=== PATIENT | female | born 1955 | race Two or more races ===

== ENCOUNTER 2016-11-07 21:24 | Emergency (ER) | payer SELFPAY ==
[~2016-11-07] VITALS: Ht 157.5 cm; Wt 85.7 kg
[2016-11-07 21:35] VITALS: BP 177/82
--- NOTE | 2016-11-07 21:50 | PHYS DOC ---
Past Medical History Past Medical History: Diabetes-Type II, High Cholesterol, Hypertension Past Surgical History: Cholecystectomy, Additional Past Surgical Histo: BLADDER LIFT Additional Information: 1-2 CIGARETTES A DAY Alcohol Use: None Drug Use: None Adult General Chief Complaint Chief Complaint: FOOT INJURY PAIN [facility] HPI Patient is a 61 year old female presents to the emergency department with complaints of right knee pain. Patient is [place]-speaking, and is offered a student accounts manager, but the family declined stating they will translate for her. The patient was getting out of the vehicle, planted her right lower extremity on the ground to get out and felt a pop in the posterior knee. She's had pain in the knee since incident with pain that radiates to the right hip. Patient had no loss of bowel or bladder control. No abdominal pain. No loss of function of lower extremity. The incident occurred approximately 7 hours prior to arrival in the emergency department. Review of Systems Review of Systems Constitutional: Denies fever or chills [] Eyes: Denies change in visual acuity, redness, or eye pain [] HENT: Denies nasal congestion or sore throat [] Respiratory: Denies cough or shortness of breath [] Cardiovascular: No additional information not addressed in HPI [] GI: Denies abdominal pain, nausea, vomiting, bloody stools or diarrhea [] : Denies dysuria or hematuria [] Musculoskeletal: Right knee pain Integument: Denies rash or skin lesions [] Neurologic: Denies headache, focal weakness or sensory changes [] Endocrine: Denies polyuria or polydipsia [] Current Medications Current Medications Current Medications Medications (Trade) Dose Ordered Sig/[facility] Start Time Stop Time Status Last Admin Dose Admin Fentanyl Citrate (Fentanyl 2ml Vial) 50 mcg 1X ONCE 11/07/16 22:00 11/07/16 22:01 DC 11/07/16 22:00 50 MCG Allergies Allergies Allergies Coded Allergies Type Severity Reaction Last Updated Verified No Known Drug Allergies 11/07/16 No Physical Exam Physical Exam Constitutional: Well developed, well nourished, no acute distress, non-toxic appearance. [] HENT: Normocephalic, atraumatic, bilateral external ears normal, oropharynx moist, no oral exudates, nose normal. [] Eyes: PERRLA, EOMI, conjunctiva normal, no discharge. [] Neck: Normal range of motion, no tenderness, supple, no stridor. [] Cardiovascular:Heart rate regular rhythm, no murmur [] Lungs & Thorax: Bilateral breath sounds clear to auscultation [] Abdomen: Bowel sounds normal, soft, no tenderness, no masses, no pulsatile masses. [] Skin: Warm, dry, no erythema, no rash. [] Back: No tenderness, no CVA tenderness. [] Extremities: Exam of the right leg: Right hip exam unremarkable. She has mild tenderness over the right lateral thigh without bony tenderness. The right knee exam reveals no swelling, no ecchymosis, no erythema. The patient will allow for range of motion but has increased pain diffusely through the knee with range of motion. He has no difficulty with flexion or extension at the hip the knee or the ankle. She has diffuse tenderness to palpate. Exam of the right lower extremity, ankle, foot unremarkable. No saddle anesthesia. Neurovascular intact distally. Muscle strength is 5 over 5. DTRs 2 over 4. Neurologic: Alert and oriented X 3, normal motor function, normal sensory function, no focal deficits noted. [] Psychologic: Affect normal, judgement normal, mood normal. [] Current Patient Data Vital Signs Vital Signs Date Time Temp Pulse Resp B/P (MAP) Pulse Ox O2 Delivery O2 Flow Rate FiO2 11/07/16 22:00 20 95 Room Air 11/07/16 21:35 98.3 85 98.3 EKG EKG [] Radiology/Procedures Radiology/Procedures Right knee x-ray reviewed by Dr. Micheal Coburn, emergency room physician, no acute changes [] Course & Med Decision Making Course & Med Decision Making Pertinent Labs and Imaging studies reviewed. (See chart for details) [] Dragon Disclaimer Dragon Disclaimer This electronic medical record was generated, in whole or in part, using a voice recognition dictation system. Departure Departure Impression: Primary Impression: Strain of knee and leg, left Disposition: 01 HOME, SELF-CARE Condition: STABLE Referrals: UNKNOWN PCP NAME (PCP) Patient Instructions: Knee Sprain Scripts Acetaminophen With Codeine (TYLENOL WITH CODEINE #3 TABLET) 1 Each Tablet 1 TAB PO PRN Q6HRS Y for PAIN, #12 TAB Prov: MIHAI ELLIS BIRDCAGE ASSEMBLER 11/07/16 Problem Qualifiers Primary Impression: Strain of knee and leg, left Encounter type: initial encounter Qualified Codes: S86.912A - Strain of unspecified muscle(s) and tendon(s) at lower leg level, left leg, initial encounter MIHAI ELLIS APRN Nov 07, 2016 21:50
[2016-11-07] MEDS ORDERED: fentaNYL PF VIAL 100 MCG/2 ML VIAL IM ONE (22:00)
[2016-11-07] MEDS ORDERED: ACET-704 PO (22:45)
--- NOTE | 2016-11-08 08:49 | RAD ---
Right knee, 3 views, 11/07/2016: History: Trauma, pain No fracture or dislocation is identified. No significant arthritic change is seen. IMPRESSION: No acute bony abnormality is detected.
== END 2016-11-07 23:15 | disposition home or self-care (01) ==
LOC: ER 21:24
DX: S86.911A Strain of unspecified muscle(s) and tendon(s) at lower leg level, right leg, initial encounter (principal); E11.9 Type 2 diabetes mellitus without complications; E78.00 Pure hypercholesterolemia, unspecified; I10 Essential (primary) hypertension; F17.210 Nicotine dependence, cigarettes, uncomplicated; X50.9XXA Other and unspecified overexertion or strenuous movements or postures, initial encounter; Y93.89 Activity, other specified; Y99.8 Other external cause status; Y92.89 Other specified places as the place of occurrence of the external cause
CPT/HCPCS: 73562; 96372; 99284; J3010

== ENCOUNTER 2018-05-17 11:36 | Emergency (ER) | payer OTHER ==
[~2018-05-17] VITALS: Ht 160 cm; Wt 79.4 kg
[~2018-05-17 11:36] MED LIST: ACET-704 PO
[2018-05-17 11:44] VITALS: BP 147/70
--- NOTE | 2018-05-17 11:57 | PHYS DOC ---
Past Medical History Past Medical History: Diabetes-Type II, High Cholesterol, Hypertension Past Surgical History: Cholecystectomy, Additional Past Surgical Histo: BLADDER LIFT Alcohol Use: None Drug Use: None Adult General Chief Complaint Chief Complaint: ANKLE PROBLEM HPI HPI 63-year-old female presents to ER via POV with complaints of left ankle and foot pain. 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 Patient reports incident happened around 7:20 this morning and she did take Advil at 7:30. Patient states she's had increased swelling and pain in left lateral ankle into left foot. Patient denies any other injury. Review of Systems Review of Systems GI: Denies nausea, vomiting Musculoskeletal: Denies back/neck pain. Reports lt ankle and foot pain with swelling Integument: Denies bruising/redness Neurologic: Denies focal weakness or sensory changes [] All other systems were reviewed and found to be within normal limits, except as documented in this note. Current Medications Current Medications Current Medications Medications (Trade) Dose Ordered Sig/[facility] Start Time Stop Time Status Last Admin Dose Admin Acetaminophen (Tylenol) 1,000 mg 1X ONCE 05/17/18 12:00 05/17/18 12:01 DC 05/17/18 12:00 1,000 MG Allergies Allergies Allergies Coded Allergies Type Severity Reaction Last Updated Verified No Known Drug Allergies 11/07/16 No Physical Exam Physical Exam Constitutional: Well developed, well nourished, no acute distress, non-toxic appearance. [] HENT: Normocephalic, atraumatic Eyes: Pupils equal, conjunctiva normal, no discharge. [] Neck: Normal range of motion, no tenderness mid line cspine, supple, no stridor. [] Cardiovascular: Heart rate regular Lungs & Thorax: Resp. equal/nonlabored Skin: Warm, dry Back: No tenderness midline spine, full ROM Extremities: No cyanosis, no clubbing, ROM intact upper and rt LE. Decreased ROM lt ankle/foot with c/o pain with movements. 2+ bilat dorsalis pedis/ posterior tibial. Tender on palp. lt lateral malleolus with swelling no ecchymosis- tenderness extends into dorsal surface of foot to base of 4-5th toes. No swelling in toes with full ROM of toes. Mild tenderness on medial lt malleolus- reports pain minimal. No calcaneous tenderness. Rt LE exam NL. Calf size symmetric/nontender. Neurologic: Alert and oriented X 3, normal motor function, normal sensory function, no focal deficits noted. [] Psychologic: Affect normal, judgement normal, mood normal. [] Current Patient Data Vital Signs EKG EKG [] Radiology/Procedures Radiology/Procedures PROCEDURE: FOOT LEFT 3V Left ankle, 3 views, 05/17/2018: HISTORY: Injury, pain No fracture or dislocation is identified. There is mild soft tissue swelling. IMPRESSION: No acute bony abnormality is detected. Left foot, 3 views, 05/17/2018: No fracture or dislocation is identified. There is moderate diffuse soft tissue swelling. IMPRESSION: No acute left foot abnormality is detected. Electronically signed by: Nikolas Adams MD (05/17/2018 12:37 PM) [facility] DICTATED and SIGNED BY: NIKOLAS ADAMS MD DATE: 05/17/18 0283 Course & Med Decision Making Course & Med Decision Making Pertinent Labs and Imaging studies reviewed. (See chart for details) Pt was evaluated in the ER for c/o lt ankle/foot injury this morning. Imaging was obtained and pt was provided with dose of tylenol. She denied any other injuries. Discussed xray results with no acute findings for fxs- soft tissue reported on images. Discussed plans for jose m wrap/air splint and crutches and pt to f/u with orthopedics for re-evaluation and further care once swelling decreases. Discussed RICE acronym. Advised on use of ice/heat and OTC tylenol/ ibuprofen PRN. Education provided on s&s to return to ER for and d/c instructions were discussed. Discussed possible walker use if crutches difficult. Discharge instructions were discussed- will provide pt with orthop. referral info. Pt remained PMS intact in lt LE prior to and following splint application. Staff Physician Addendum: I was working in the ER during the course of this patient's visit. I was available for consultation as needed, but I was not directly involved in the care of this patient. Dragon Disclaimer Dragon Disclaimer This electronic medical record was generated, in whole or in part, using a voice recognition dictation system. Departure Departure Impression: Primary Impression: Injury of ankle, left Additional Impression: Foot pain, left Disposition: HOME, SELF-CARE Condition: STABLE Referrals: UNKNOWN PCP NAME (PCP) MICHELE YOU MD Patient Instructions: Ankle Sprain, Elastic Bandage and RICE, Foot Sprain Additional Instructions: Tylenol and/or ibuprofen as needed for pain as directed on container. If symptoms persist or with concerns follow-up with orthopedic doctor for reevaluation and further care. Problem Qualifiers SKIP GUAN APRN May 17, 2018 11:57 CAMRYN RIDLEY MD Aug 17, 2018 04:22
[2018-05-17] MEDS ORDERED: ACETAMINOPHEN 500 MG TABLET PO ONE (12:00)
--- NOTE | 2018-05-17 12:41 | RAD ---
Left ankle, 3 views, 05/17/2018: HISTORY: Injury, pain No fracture or dislocation is identified. There is mild soft tissue swelling. IMPRESSION: No acute bony abnormality is detected. Left foot, 3 views, 05/17/2018: No fracture or dislocation is identified. There is moderate diffuse soft tissue swelling. IMPRESSION: No acute left foot abnormality is detected. Electronically signed by: Nikolas Adams MD (05/17/2018 12:37 PM) [facility]
== END 2018-05-17 13:20 | disposition home or self-care (01) ==
LOC: ER 11:36
DX: S99.912A Unspecified injury of left ankle, initial encounter (principal); M79.672 Pain in left foot; E78.00 Pure hypercholesterolemia, unspecified; I10 Essential (primary) hypertension; E11.9 Type 2 diabetes mellitus without complications; W01.0XXA Fall on same level from slipping, tripping and stumbling without subsequent striking against object, initial encounter; Y93.89 Activity, other specified; Y92.218 Other school as the place of occurrence of the external cause; Y99.0 Civilian activity done for income or pay
CPT/HCPCS: 29515; 73610; 73630; 99283-25